=== PATIENT | male | born 1945 | race Caucasian/White ===

== ENCOUNTER 2020-04-29 16:59 | Inpatient (IN) | payer OTHER ==
[~2020-04-29] VITALS: Ht 162.6 cm; Wt 74.4 kg
[~2020-04-29 16:59] MED LIST: ATENOLOL 25MG T25 M1 PO; IMDUR 60 MG TAB60 M1 PO; LIPITOR40 MG; NIACIN 500 MG500 M1 PO; NITROGLYCERIN0.4 MG SL
[2020-04-29 17:05] VITALS: BP 120/74
[2020-04-29] MEDS ORDERED: AZELASTINE205.5 MCG/ NARES (17:09)
[2020-04-29] MEDS ORDERED: ISOSORBIDE MONO60 M1 PO (17:10)
[2020-04-29] MEDS ORDERED: EZALLOR SPRINKL10 MG PO (17:10)
[2020-04-29 17:33] LABS: ABSOLUTE LYMPHOCYTES 0.9 thou/uL (0.8-5.3); ABSOLUTE MONOCYTES 0.8 thou/uL (0.0-1.2); ABSOLUTE NEUTROPHILS 5.7 thou/uL (1.6-8.1); BASOPHILS 0.3 %; HEMATOCRIT 44.8 % (42.0-52.0); HEMOGLOBIN 15.4 gm/dL (14.0-18.0); LYMPHOCYTES 12.2 %; MCH 31.7 pg (26.0-34.0); MCHC 34.5 g/dL (28.0-37.0); MCV 91.8 fL (80.0-100.0); MONOCYTES 10.2 %; MPV 7.9 fl. (7.2-11.1); NUCLEATED RBCS 0 /100WBC; PLATELET COUNT* 186 thou/uL (150-400); POLYS 77.3 %; RBC 4.88 mil/uL (4.50-6.00); RDW-CV 13.5 % (10.5-14.5); WBC 7.4 thou/uL (4.0-11.0)
[2020-04-29 17:41] LABS: CALCIUM 8.8 mg/dL (8.5-10.1); CREATININE 1.7 mg/dL (0.6-1.3); POTASSIUM 4.4 mmol/L (3.5-5.1)
[2020-04-29 17:47] LABS: INR 1.1; PROTIME 11.2 Seconds (9.20-11.50)
[2020-04-29 17:55] LABS: ALBUMIN 3.2 g/dL (3.4-5.0); TOTAL BILIRUBIN 0.6 mg/dL (<0.1-1.0); TOTAL PROTEIN 7.8 g/dL (6.4-8.2)
[2020-04-29 20:17] VITALS: BP 102/51
[2020-04-29 20:25] VITALS: BP 87/55
[2020-04-30 00:14] VITALS: BP 92/58
[2020-04-30] MEDS ORDERED: ASA81BEC PO (03:01)
[2020-04-30] MEDS ORDERED: IMDUR 30 MG TAB30 M1 PO (03:04)
[2020-04-30 04:45] VITALS: BP 96/61
[2020-04-30 08:15] VITALS: BP 127/65
[2020-04-30 10:29] LABS: ABSOLUTE LYMPHOCYTES 0.9 thou/uL (0.8-5.3); ABSOLUTE MONOCYTES 0.2 thou/uL (0.0-1.2); ABSOLUTE NEUTROPHILS 3.3 thou/uL (1.6-8.1); BASOPHILS 0.3 %; HEMATOCRIT 40.6 % (42.0-52.0); HEMOGLOBIN 13.7 gm/dL (14.0-18.0); LYMPHOCYTES 19.9 %; MCH 30.9 pg (26.0-34.0); MCHC 33.7 g/dL (28.0-37.0); MCV 91.9 fL (80.0-100.0); MONOCYTES 4.4 %; MPV 8.2 fl. (7.2-11.1); NUCLEATED RBCS 0 /100WBC; PLATELET COUNT* 186 thou/uL (150-400); POLYS 75.4 %; RBC 4.42 mil/uL (4.50-6.00); RDW-CV 13.4 % (10.5-14.5); WBC 4.3 thou/uL (4.0-11.0)
[2020-04-30 10:42] LABS: CREATININE 1.6 mg/dL (0.6-1.3); POTASSIUM 3.9 mmol/L (3.5-5.1)
[2020-04-30 12:27] VITALS: BP 155/68
[2020-04-30 16:00] VITALS: BP 125/66
--- NOTE | 2020-04-30 16:26 | EKG ---
[place] [address] ELECTROCARDIOGRAM REPORT Name: ALY CHANEL Room: [address] ADM IN M.R.#: [id number] Admission: 04/29/20 Attend Phys: Jaquelin Back Discharge: Date of : 41 Date of Service: 04/29/20 1719 Report #: [id number] THIS REPORT FOR: //name// [facility] ED Test Date: 2020-04-29 Test Time: 17:19:55 Pat Name: ALY CHANEL Department: Room: [facility] Gender: M Classifier Operator: EBONY : 1945 Requested By: Christopher Sheth Order Number: [id number] MD: Guerrero Gant Measurements Intervals [place] Rate: 77 P: -8 SC: 137 QRS: -16 QRSD: 102 T: 137 QT: 357 QTc: 404 Interpretive Statements Sinus rhythm Multiple ventricular premature complexes Inferior infarct, old Compared to ECG 03/24/2011 08:29:43 Ventricular premature complex(es) now present ST (T wave) deviation persists Myocardial infarct finding still present Electronically Signed On 04-30-2020 16:26:47 DATA COLLECTOR by Guerrero Gant [email or web address] <ELECTRONICALLY SIGNED> By: Guerrero Gant MD, FACC 04/30/20 1626 18 18 Guerrero Gant MD, [facility] /EPI
[2020-04-30 20:00] VITALS: BP 126/72
[2020-05-01] VITALS: BP 140/79
[2020-05-01 04:00] VITALS: BP 131/66
[2020-05-01 05:31] LABS: HEMATOCRIT 39.5 % (42.0-52.0); HEMOGLOBIN 13.2 gm/dL (14.0-18.0); MCHC 33.5 g/dL (28.0-37.0); MCV 92.7 fL (80.0-100.0); MPV 8.6 fl. (7.2-11.1); RBC 4.26 mil/uL (4.50-6.00); RDW-CV 13.7 % (10.5-14.5)
[2020-05-01 05:41] LABS: WBC 15.7 thou/uL (4.0-11.0)
[2020-05-01 05:51] LABS: ALBUMIN 2.6 g/dL (3.4-5.0); CALCIUM 7.7 mg/dL (8.5-10.1); CREATININE 1.5 mg/dL (0.6-1.3); MAGNESIUM 1.9 mg/dL (1.8-2.4); POTASSIUM 4.3 mmol/L (3.5-5.1); TOTAL BILIRUBIN 0.3 mg/dL (<0.1-1.0); TOTAL PROTEIN 6.3 g/dL (6.4-8.2)
[2020-05-01 08:00] VITALS: BP 142/70
[2020-05-01] MEDS ORDERED: LEVOFLOXACIN500 MG PO (08:11)
[2020-05-01] MEDS ORDERED: IMDUR 30 MG TAB30 M1 PO (08:11)
[2020-05-01] MEDS ORDERED: SINGULAIR 10 MG10 M1 PO (08:11)
[2020-05-01 11:27] VITALS: BP 142/70
== END 2020-05-01 12:30 | disposition home or self-care (01) | DRG 177 ==
LOC: M.ERS 16:59 → M.ORTHSURG 18:04 → M.TBA-ER 18:04 → M.ORTHSURG 20:20
PROVIDERS: Family Medicine; Internal Medicine; ADMIT Internal Medicine; ATTEND Internal Medicine
PROC: B54NZZA Ultrasonography of Left Upper Extremity Veins, Guidance (ICD-10-PCS; principal; 2020-04-30)
PROC: 05HF33Z Insertion of Infusion Device into Left Cephalic Vein, Percutaneous Approach (ICD-10-PCS; principal; 2020-04-30)
DX: U07.1 COVID-19 (principal); J12.89 Other viral pneumonia; J15.6 Pneumonia due to other Gram-negative bacteria; I95.9 Hypotension, unspecified; I25.10 Atherosclerotic heart disease of native coronary artery without angina pectoris; I10 Essential (primary) hypertension; E86.0 Dehydration; E78.5 Hyperlipidemia, unspecified; R77.8 Other specified abnormalities of plasma proteins; E78.00 Pure hypercholesterolemia, unspecified; Z96.659 Presence of unspecified artificial knee joint; Z95.1 Presence of aortocoronary bypass graft; Z79.899 Other long term (current) drug therapy; Z88.5 Allergy status to narcotic agent; Z28.21 Immunization not carried out because of patient refusal